=== PATIENT | female | born 1995 | race Two or more races ===

== ENCOUNTER 2016-09-29 16:47 | Emergency (ER) | payer OTHER ==
[2016-09-29 16:59] VITALS: RESP 16
--- NOTE | 2016-09-29 17:25 | CPEKG ---
Heart Rate: 65 RR Interval: 923 P-R Interval: 144 QRSD Interval: 78 QT Interval: 432 QTC Interval: 450 P [place]: 49 QRS [place]: 73 T Wave [place]: 49 EKG Severity - NORMAL ECG - EKG Impression: SINUS RHYTHM Electronically Signed By: Bassam Vick 29-Sep-2016 21:57:35
--- NOTE | 2016-09-29 17:42 | EDPHY ---
H & P Smoking Status: Never smoked Time Seen by Provider: 09/29/16 17:07 HPI/ROS: This is a 20-year-old female presenting to the emergency department complaining of left anterior chest pain nonradiating onset at 5 o'clock this morning while she was week, also complaining of left calf pain onset today. Patient said she had something similar several months ago that went away, symptoms today have not resolved. Patient on control, nonsmoker, and active. Denies any other complaints REVIEW OF SYSTEMS: Constitutional: No fever no fatigue. No changes in appetite or ADLs Eyes: No vision changes ENT: No sore throat Respiratory: No cough or shortness of breath Cardiac: Left anterior chest wall pain Gastrointestinal: No abdominal pain no nausea vomiting Musculoskeletal: Left calf pain Skin: No rash Neurological: No headache or dizziness (Lolis Farris) Physical Exam: CONSTITUTIONAL: patient appeared well nourished, non-ill appearing and normally developed. No acute distress. Vital signs as documented. HEENT: Normocephalic atraumatic. PERRLA. EOMI. NECK: Supple, without jugular venous distension, tracheal deviation. FROM without pain RESP: Non-labored resp effort, airway patent, CTAB CARDIAC: RRR w/o murmur, shyanne. Normal S1/S2. Left anterior chest wall tenderness on palpation and with left arm range of motion GI: Abd soft NTTP, NEURO: AAOx3 ambulatory without gait disturbance EXTREMITIES: Left calf pain tenderness on palpation. FROM without difficulty. Positive cms intact SKIN: Warm and dry, no rash PSYCH: Normal affect, calm, no distress (Lolis Farris) Constitutional: Initial Vital Signs Temperature (C) 37.1 C 09/29/16 16:55 Heart Rate 61 09/29/16 16:55 Respiratory Rate 16 09/29/16 16:55 Blood Pressure 113/63 09/29/16 16:55 O2 Sat (%) 99 09/29/16 16:55 O2 Delivery Mode Room Air Allergies/Adverse Reactions: No Known Allergies Allergy (Unverified 09/29/16 16:59) Home Medications: Medication Instructions Recorded Control Pill 09/29/16 Medical Decision Making - Diagnostics EKG Interpretation: 12 lead EKG: Indication: Chest pain Impression: Normal sinus rhythm (Lolis Farris) Imaging: Imaging Impressions Extremity Venous Study 09/29/16 17:26 Impression: No deep venous thrombosis left leg. Results called to Lolis Farris NP. ED Course/Re-evaluation: Discussed plan of care: EKG, ultrasound of left lower extremity to rule out any DVT, and a D-dimer. Patient agrees with plan Discussed findings with patient, no acute findings discharge home---> stable, discussed discharge instructions patient (Lolis Farris) Differential Diagnosis: Differential diagnosis considered but not limited to PE, DVT, and the abnormal EKG (Lolis Farris) Other Provider: The patient was evaluated and managed by the Physician Marketing Performance Analyst/ Nurse Practitioner. My co-signature indicates that I have reviewed this chart and I agree with the findings and plan of care as documented. I am the secondary supervising physician. (Ave Pino) - Data Points Laboratory Results: 09/29/16 18:00 D-Dimer < 0.27 ug/mLFEU ug/mLFEU (0.00-0.50) Departure - Departure Disposition: Home, Routine, Self-Care Clinical Impression: Anterior chest wall pain, Musculoskeletal chest pain Condition: Good Instructions: Musculoskeletal Pain (ED), Chest Wall Pain (ED) Additional Instructions: 1. rest, decrease any strenuous activity 2. You can take efua-vuj-gemsked ibuprofen 600 mg every 6-8 hours as needed 3. Heating pad hot tub soaks may be beneficial 4. If at any point in time symptoms worsen shortness of breath back pain return to the emergency department Referrals: NONE *PRIMARY CARE P,. [Primary Care Provider] - As per Instructions [facility],. [Clinic] - As per Instructions
[2016-09-29 18:51] VITALS: BP 128/79; PULSE 70; TEMP 98.4; O2SAT 94
--- NOTE | 2016-09-30 07:50 | CPEKG ---
Heart Rate: 98 RR Interval: 612 P-R Interval: 184 QRSD Interval: 86 QT Interval: 316 QTC Interval: 404 P [place]: 78 QRS [place]: 72 T Wave [place]: -32 EKG Severity - ABNORMAL ECG - EKG Impression: SINUS RHYTHM EKG Impression: BIATRIAL ABNORMALITIES EKG Impression: PROBABLE LVH WITH SECONDARY REPOL ABNRM EKG Impression: INFERIOR Q WAVES, PROBABLY NORMAL VARIATION Electronically Signed By: Krishan Jim 30-Sep-2016 08:52:53
== END 2016-09-29 18:51 | disposition home or self-care (01) ==
DX: R07.89 Other chest pain (principal)